=== PATIENT | female | born 1990 | race African-American/Black ===

== ENCOUNTER 2019-02-19 22:40 | Emergency (ER) | payer SELFPAY ==
[2019-02-19 22:48] VITALS: BP 154/110; PULSE 108; TEMP 98.4; BMI 18.8
--- NOTE | 2019-02-19 22:49 | PDOC ---
History of Present Illness - General Chief Complaint: Pain, Acute Stated Complaint: TAMPON STUCK INSIDE VAGINA Time Seen by Provider: 02/19/19 22:48 History Source: Patient Exam Limitations: No Limitations - History of Present Illness Initial Comments: 02/19/19 23:06 This is a 28-year-old female who comes in complaining of a possible retained tampon in her vagina. Patient denies any bad odor any other complaints. Allergies: as per nursing notes Past Medical History: none Social history: Lives with family. No smoking. No alcohol. No illicit drugs. Surgical history: None General: No fevers or chills, no weakness, no weight loss HEENT: No change in vision. No sore throat,. No ear pain CardioVascular: no chest discomfort. No shortness of breath Respiratory:No cough, or wheezing. Gastrointestinal: no nausea, vomiting, diarrhea or constipation, No rectal bleeding Genitourinary: No dysuria, hematuria, or frequency Musculoskeletal: No joint or muscle pain or swelling Neurologic: No headache, vertigo, dizziness or loss of consciousness Psychiatric: nor depression Skin: No rashes or easy bruising Endocrine: no increased thirst or abnormal weight change Allergic: no skin or latex allergy All other systems reviewed and normal GENERAL: The patient is awake, alert, and fully oriented, in no acute distress. HEAD: Normal with no signs of trauma. EYES: Pupils equal, round and reactive to light, extraocular movements intact, sclera anicteric, conjunctiva clear. PELVIS: There is a small amount of blood in the vaginal vault there is no tampon in the vaginal vault. EXTREMITIES:atraumatic, Normal range of motion, no edema. NEUROLOGICAL: Normal speech, normal gait. PSYCH: Normal mood, normal affect. SKIN: Warm, Dry, normal turgor, no rashes or lesions noted. Assessment and plan: This is a 28-year-old female who thought she had a possible retained tampon in her vagina. There is no retained tampon patient was reassured and discharged home. Past History - Past Medical History Allergies/Adverse Reactions: Allergies Allergy/AdvReac Type Severity Reaction Status Date / Time No Known Allergies Allergy Verified 02/19/19 22:41 Home Medications: Ambulatory Orders NK [No Known Home Medication] 02/19/19 COPD: No Other medical history: SEASONAL ALLERGIES - Suicide/Smoking/Psychosocial Hx Smoking History: Never smoked Have you smoked in the past 12 months: No Information on smoking cessation initiated: No Hx Alcohol Use: No Drug/Substance Use Hx: No *Physical Exam - Vital Signs Last Vital Signs Temp Pulse Resp BP Pulse Ox 98.4 F 108 H 18 154/110 H 100 02/19/19 22:44 02/19/19 22:44 02/19/19 22:44 02/19/19 22:44 02/19/19 22:44 *DC/Admit/Observation/Transfer Diagnosis at time of Disposition: Vaginal foreign body Qualifiers: Encounter type: initial encounter Qualified Code(s): T19.2XXA - Foreign body in vulva and vagina, initial encounter - Discharge Dispostion Disposition: HOME Condition at time of disposition: Stable Decision to Admit order: No - Referrals - Patient Instructions Additional Instructions: Return to the emergency department immediately with ANY new, persistent or worsening symptoms. Continue any medications as previously prescribed by your physician. You should follow up with your primary doctor as soon as possible regarding today's emergency department visit. . Please make sure your doctor reviews the results of your emergency evaluation. Thank you for coming to the Emergency Department today for your care. It was a pleasure to see you today. Please note that your evaluation is INCOMPLETE until you follow-up with your doctor. - Post Discharge Activity
== END 2019-02-19 23:06 | disposition home or self-care (01) ==
LOC: FER 22:40
DX: T19.2XXA Foreign body in vulva and vagina, initial encounter (principal); J30.2 Other seasonal allergic rhinitis
CPT/HCPCS: 99281-25